=== PATIENT | female | born 1930 | race Caucasian/White ===

== ENCOUNTER 2019-09-24 12:57 | Outpatient (CLI) | payer MEDICARE | END 2019-09-24 23:59 | disposition home or self-care (01) | LOC: CFH 12:57 | PROVIDERS: ATTEND Internal Medicine | DX: Z13.820 Encounter for screening for osteoporosis (principal); M81.0 Age-related osteoporosis without current pathological fracture; N95.9 Unspecified menopausal and perimenopausal disorder | CPT/HCPCS: 77080 ==